=== PATIENT | male | born 1950 | race Caucasian/White ===

== ENCOUNTER 2017-06-10 19:48 | Inpatient (IN) ==
--- NOTE | 2017-06-10 20:27 | Emergency Department Note ---
Disposition Clinical Impression: Hyponatremia, Influenza Disposition: Admitted As Inpatient Condition: Good Time of Disposition: 00:08 General Adult HPI - General Chief complaint: ED Upper Respiratory Infection Stated complaint: flu/unable to pee Time Seen by Provider: 06/10/17 20:17 Source: patient Mode of arrival: ambulatory Limitations: no limitations Nursing Notes Reviewed: Yes Vital Signs Reviewed: Yes - History of Present Illness HPI Narrative: 66-year-old male history of CAD x1 stent 1999 presents to the emergency department for chest discomfort, congestion, difficulty urinating. The symptoms started 4 days ago. He was seen at the [place] and was diagnosed with influenza. Since then he has been taking Tamiflu and was prescribed antibiotic. His chest x-ray was reported normal without findings of pneumonia. Since then he has progressively feeling more weak and fatigued. He describes a chest discomfort in the midsternum which she describes as his chest wanting to throw up. He does feel nausea denies any vomiting. Denies any fever chills. He reports decreased PO intake. Over the past several months he has been having some hesitancy with urination. He states he is been seen by his primary care physician and was told to not worry about it. Today he had issue starting but was able to urinate a small amount prior to arrival. He believes he is a little dehydrated. Pain Scale: 3 - Related Data Home Medications Medication Instructions Recorded Confirmed Docusate Sodium [Dok] 100 mg PO DAILY 01/01/17 06/10/17 Insulin Glargine,Hum.rec.anlog 12 unit SQ HS 01/01/17 06/10/17 [Lantus Solostar] Levothyroxine [Synthroid] 100 mcg PO 0630 01/01/17 06/10/17 Oxycodone HCl/Acetaminophen 1 tab PO TID PRN 01/01/17 06/10/17 [Percocet 5-325 mg Tablet] Albuterol Sulfate [Albuterol 2 puff IH Q4H PRN 06/10/17 06/10/17 Inhaler] Aspirin Enteric Coated [Aspirin EC] 325 mg PO DAILY 06/10/17 06/10/17 Cetirizine HCl [Zyrtec] 10 mg PO DAILY 06/10/17 06/10/17 [place] Tar [Tarsum Professional] 1 appl TP AD 06/10/17 06/10/17 Doxycycline Monohydrate [Avidoxy] 100 mg PO BID 06/10/17 06/10/17 GuaiFENesin/Dextromethorphan 10 ml PO Q4H PRN 06/10/17 06/10/17 [Tussin Dm Syrup] Ibuprofen [Motrin] 600 mg PO Q8H 06/10/17 06/10/17 Lisinopril [Zestril] 5 mg PO DAILY 06/10/17 06/10/17 Metformin HCl [Metformin HCl ER] 1,000 mg PO BID 06/10/17 Methadone 40 mg PO QID 06/10/17 06/10/17 Omeprazole [PriLOSEC] 40 mg PO DAILY 06/10/17 Polyvinyl Alcohol [Artificial 1 drop BOTH EYES QID 06/10/17 06/10/17 Tears] Silver Sulfadiazine [Silvadene] 1 appl TP BID PRN 06/10/17 06/10/17 Allergies Allergy/AdvReac Type Severity Reaction Status Date / Time fentanyl Allergy Rash Verified 01/10/17 07:40 gabapentin Allergy See Verified 06/10/17 22:54 Comments Imipramine Allergy Rash Verified 06/10/17 19:56 morphine Allergy Hives Verified 01/10/17 07:40 Penicillins Allergy Rash Verified 01/10/17 07:40 tofanil Allergy Severe Muscle Pain Uncoded 01/01/17 09:07 All systems ED: reviewed and negative except as stated. Review of Systems: As Per HPI Constitutional: Reports: weakness. Denies: fever, chills ENT ED: Reports: congestion Cardiovascular: Reports: chest pain Respiratory: Reports: cough. Denies: dyspnea Gastrointestinal: Reports: nausea. Denies: abdominal pain, vomiting Genitourinary: Denies: urgency, dysuria Musculoskeletal: Denies: back pain, neck pain Integumentary: Denies: rash, abrasion Past Medical History - Past Medical History Attestation: Yes The following information was validated with the patient. Source: patient Medical history: Reports: arthritis, cancer, COPD, coronary artery disease, diabetes, hyperlipidemia, hypertension, myocardial infarction, peripheral artery disease, thyroid disease, other Surgical history: Reports: other Psychiatric history: Reports: bipolar, schizophrenia - Social History Smoking Status: Former smoker Smokeless Tobacco Status: No Alcohol use: Reports: none Drug use: Reports: none Physical Exam - General Limitations: no limitations General appearance: alert, in no apparent distress - Head Head exam: atraumatic, normocephalic, normal inspection - Eye Eye exam: Present: normal appearance, PERRL, EOMI - ENT ENT exam: normal exam, normal oropharynx, mucous membranes moist - Neck Neck exam: Present: normal inspection, full ROM, trachea midline - Chest Chest inspection: Present: normal inspection, symmetric chest wall rise - Respiratory Respiratory exam: Present: normal lung sounds bilaterally. Absent: respiratory distress, wheezes - Cardiovascular Cardiovascular exam: Present: regular rate, normal rhythm, normal heart sounds - Abdominal Exam Abdominal exam: Present: soft, Non-Tender. Absent: tenderness, distention, guarding, rebound, rigidity - Extremities Exam Extremities exam: Present: normal inspection, full ROM, normal capillary refill. Absent: tenderness, pedal edema - Neurological Exam Neurological exam: Present: alert, oriented X3 - Psychiatric Psychiatric exam: Present: normal affect, normal mood - Skin Skin exam: Present: warm, dry, intact, normal color Course Course Narrative: Chest pain workup initiated given his history of coronary arterial disease and worsening symptoms. Chest x-ray to evaluate for any new pneumonia. EKG performed did not show any acute ischemic changes. Patient taken aspirin earlier today. Labs pending. - Reevaluation(s) Reevaluation #1: Troponin lesson 0.03. He did have a critical lab of sodium 117. It appears he has chronic hyponatremia. He denies history of alcoholism. He reports history of squamous cell skin carcinoma that radical neck dissection which did also appeared to injure one of his nerves to his vocal cords. Chest x-ray unremarkable and did not reveal any abnormal masses to suggest malignancy. He denies any seizures. He remains awake alert and oriented person place and time. No confusion. He appears you have bulimic. Urinalysis performed given his complaint of difficulty and urinating. Is not consistent with infection. Will also add urine osmol and urine sodium to better evaluate his cause for hyponatremia. At this time he does not require hypertonic normal saline. Will place him on a maintenance of 100 mL per hour normal saline drip. He will require admission for his hyponatremia further monitoring. He does have a history of diabetes by his glucose is 169,which does not correct much higher than 118. Patient may require one additional a of treatment for his influenza. Impression is influenza hyponatremia. It is otherwise in stable condition. - Consultations Consultation #1: Spoke with on-call hospitalist marcela Dillard to admit for acute on chronic hyponatremia. Patient is alert and oriented, no encephalopathy. Euvolemic started on 100cc/hr NS.. Request patient be admitted to ICU for close monitoring Time: 00:08 Vital Signs Temperature 98.7 F 06/10/17 19:56 Pulse Rate 94 06/10/17 19:56 Respiratory Rate 16 06/10/17 19:56 Blood Pressure 171/91 06/10/17 19:56 O2 Sat by Pulse Oximetry 95 06/10/17 19:56 Temperature 98.7 F 06/10/17 19:56 Pulse Rate 106 06/11/17 00:19 Respiratory Rate 18 06/11/17 00:19 Blood Pressure 144/96 06/11/17 00:19 O2 Sat by Pulse Oximetry 97 06/11/17 00:19 Oxygen Delivery Oxygen Delivery Room Air Medical Decision Making - MDM Narrative Medical decision making narrative: Patient was discussed with my attending physician who agrees with ED management and final disposition. They independently evaluated the patient. Please refer to their attestation to this encounter for additional information. This note was generated by [employer] voice recognition software and as a result grammatical or spelling errors may occur using this program. - Medical Records Medical records reviewed: Yes I reviewed the patient's medical records. - Lab Data Lab results reviewed: Yes I reviewed the patient's lab results. Result diagrams: 06/10/17 20:49 06/10/17 20:49 Lab Results 06/10/17 06/10/17 06/10/17 Range/Units 20:45 20:49 20:49 WBC (4.3-11.1) K/mcL RBC (4.19-5.50) M/mcL Hgb (12.9-16.9) g/dL Hct (37.5-50.1) % MCV (83.0-100.0) fL MCH (28.0-33.3) pg MCHC (31.6-35.5) g/dL RDW (11.5-14.5) % Plt Count (140-400) K/mcL MPV (9.4-12.4) fL Immature Gran % (0-4) % Seg Neutrophils % % Lymphocytes % % Monocytes % % Eosinophils % % Basophils % % Neutrophils # (1.6-8.9) K/mcL Lymphocytes # (0.6-4.6) K/mcL Monocytes # (0.0-1.3) K/mcL Eosinophils # (0.0-0.6) K/mcL Basophils # (0.0-0.2) K/mcL Sodium (136-145) mEq/L Potassium (3.5-5.1) mEq/L Chloride (98-107) mEq/L Carbon Dioxide (23-29) mEq/L BUN (8-23) mg/dL Creatinine (0.70-1.30) mg/dL Est GFR ( Amer) (> 60) Est GFR (Non-Af Amer) (> 60) BUN/Creatinine Ratio (6-26) Glucose (70-105) mg/dL Calculated Osmolality (280-300) Calcium (8.6-10.3) mg/dL Total Bilirubin 0.5 (0.3-1.0) mg/dL Direct Bilirubin 0.2 (0.0-0.2) mg/dL Indirect Bilirubin 0.3 (0.0-1.2) mg/dL AST 20 (13-39) Units/L ALT 11 (7-52) Units/L Alkaline Phosphatase 60 (34-104) Units/L Troponin I (< 0.04) ng/mL Serum Total Protein 6.7 (6.4-8.9) g/dL Albumin 4.1 (3.5-5.7) g/dL Globulin 2.6 (2.4-3.5) g/dL Albumin/Globulin Ratio 1.6 (1.1-2.2) Lipase 3 L (11-82) Units/L Urine Color Yellow (Yellow) Urine Clarity Clear (Clear) Urine pH 6.0 (5.0-8.0) pH Units Ur Specific [place] 1.019 (1.010-1.025) Urine Protein Negative (Neg-Trace) mg/dL Urine Glucose (UA) 500 H (Normal) mg/dL Urine Ketones Negative (Negative) mg/dL Urine Blood Negative (Negative) Urine Nitrite Negative (Negative) Urine Bilirubin Negative (Negative) Urine Urobilinogen Normal (Normal) mg/dL Ur Leukocyte Esterase Negative (Negative) Ur Culture Indicated? NO (NO) 06/10/17 06/10/17 Range/Units 20:49 20:49 WBC 6.0 (4.3-11.1) K/mcL RBC 4.08 L (4.19-5.50) M/mcL Hgb 12.5 L (12.9-16.9) g/dL Hct 34.4 L (37.5-50.1) % MCV 84.3 (83.0-100.0) fL MCH 30.6 (28.0-33.3) pg MCHC 36.3 H (31.6-35.5) g/dL RDW 12.6 (11.5-14.5) % Plt Count 199 (140-400) K/mcL MPV 9.3 L (9.4-12.4) fL Immature Gran % 0.5 (0-4) % Seg Neutrophils % 75.2 % Lymphocytes % 11.6 % Monocytes % 9.9 % Eosinophils % 2.5 % Basophils % 0.3 % Neutrophils # 4.5 (1.6-8.9) K/mcL Lymphocytes # 0.7 (0.6-4.6) K/mcL Monocytes # 0.6 (0.0-1.3) K/mcL Eosinophils # 0.2 (0.0-0.6) K/mcL Basophils # 0.0 (0.0-0.2) K/mcL Sodium 117 L* (136-145) mEq/L Potassium 4.7 (3.5-5.1) mEq/L Chloride 86 L (98-107) mEq/L Carbon Dioxide 25 (23-29) mEq/L BUN 12 (8-23) mg/dL Creatinine 1.03 (0.70-1.30) mg/dL Est GFR ( Amer) > 60 (> 60) Est GFR (Non-Af Amer) > 60 (> 60) BUN/Creatinine Ratio 12 (6-26) Glucose 169 H (70-105) mg/dL Calculated Osmolality 248 L (280-300) Calcium 9.0 (8.6-10.3) mg/dL Total Bilirubin (0.3-1.0) mg/dL Direct Bilirubin (0.0-0.2) mg/dL Indirect Bilirubin (0.0-1.2) mg/dL AST (13-39) Units/L ALT (7-52) Units/L Alkaline Phosphatase (34-104) Units/L Troponin I < 0.03 (< 0.04) ng/mL Serum Total Protein (6.4-8.9) g/dL Albumin (3.5-5.7) g/dL Globulin (2.4-3.5) g/dL Albumin/Globulin Ratio (1.1-2.2) Lipase (11-82) Units/L Urine Color (Yellow) Urine Clarity (Clear) Urine pH (5.0-8.0) pH Units Ur Specific [place] (1.010-1.025) Urine Protein (Neg-Trace) mg/dL Urine Glucose (UA) (Normal) mg/dL Urine Ketones (Negative) mg/dL Urine Blood (Negative) Urine Nitrite (Negative) Urine Bilirubin (Negative) Urine Urobilinogen (Normal) mg/dL Ur Leukocyte Esterase (Negative) Ur Culture Indicated? (NO) - Radiology Data Radiology results reviewed: Yes I reviewed the patient's radiology results. Chest X-Ray 06/10/17 20:40 IMPRESSION: Stable portable study. D/ / Mitzi Mccarthy Cha, MD / Mitzi Mccarthy Cha, MD Interpreting Provider: Mitzi Mccarthy Cha, MD - EKG Data EKG #1 EKG attestation: Yes I reviewed and interpreted this EKG. EKG results narrative: EKG performed 2048 normal sinus rhythm 88 bpm, occasional PVCs seen, no ST elevation or depression, no T wave inversion, [place] interval 189 QRS 104 QT QTC 362 408. Compared to prior EKG performed 12/26/2016 shows sinus tachycardia 101 beats per minute with similar consistent findings. No acute ischemic changes.
[2017-06-10] MEDS ORDERED: GI Cocktail 40 ML EACH PO ONE (20:40)
[2017-06-10 20:58] LABS: Bilirubin,Urine Negative (Negative); Blood,Urine Negative (Negative); Clarity,Urine Clear (Clear); Color,Urine Yellow (Yellow); Glucose,Urine (UA) 500 mg/dL (Normal); Ketones,Urine Negative (Negative); Leukocyte Esterase,Urine Negative (Negative); Nitrite,Urine Negative (Negative); Protein,Urine Negative (Neg-Trace); Specific Gravity,Urine 1.019 (1.010-1.025); Urobilinogen,Urine Normal (Normal)
[2017-06-10 21:06] LABS: Basophils % 0.3 %; Eosinophils # 0.2 K/mcL (0.0-0.6); Eosinophils % 2.5 %; Hematocrit 34.4 % (37.5-50.1); Hemoglobin 12.5 g/dL (12.9-16.9); Immature Granulocytes % 0.5 % (0-4); Lymphocytes # 0.7 K/mcL (0.6-4.6); Lymphocytes % 11.6 %; Mean Corpuscular HGB Conc 36.3 g/dL (31.6-35.5); Mean Corpuscular Hemoglobin 30.6 pg (28.0-33.3); Mean Corpuscular Volume 84.3 fL (83.0-100.0); Mean Platelet Volume 9.3 fL (9.4-12.4); Monocytes # 0.6 K/mcL (0.0-1.3); Monocytes % 9.9 %; Neutrophils # 4.5 K/mcL (1.6-8.9); Platelet Count 199 K/mcL (140-400); Red Blood Count 4.08 M/mcL (4.19-5.50); Red Cell Distribution Width 12.6 % (11.5-14.5); Segmented Neutrophils % 75.2 %
[2017-06-10 21:21] LABS: Albumin 4.1 g/dL (3.5-5.7); Albumin/Globulin Ratio 1.6 (1.1-2.2); Bilirubin,Direct 0.2 mg/dL (0.0-0.2); Bilirubin,Indirect 0.3 mg/dL (0.0-1.2); Bilirubin,Total 0.5 mg/dL (0.3-1.0); Globulin 2.6 g/dL (2.4-3.5); Total Protein 6.7 g/dL (6.4-8.9)
[2017-06-10 21:35] LABS: BUN/Creatinine Ratio 12 (6-26); Blood Urea Nitrogen 12 mg/dL (8-23); Carbon Dioxide 25 mEq/L (23-29); Chloride 86 mEq/L (98-107); Potassium 4.7 mEq/L (3.5-5.1); Sodium 117 mEq/L (136-145)
[2017-06-10 21:36] LABS: Glucose 169 mg/dL (70-105); Osmolality,Calculated 248 (280-300); Troponin I < 0.03 ng/mL (< 0.04); eGFR For African Americans > 60 (> 60); eGFR For Non-African Americans > 60 (> 60)
[2017-06-10] MEDS ORDERED: Ondansetron 4 MG/2 ML VIAL IVP ONE (22:27)
[2017-06-10] MEDS ORDERED: 0.9 % Sodium Chloride 1,000 ML IVC SCH (22:30)
[2017-06-10] MEDS ORDERED: 0.9 % Sodium Chloride 1,000 ML ONE (22:31)
[2017-06-10] MEDS ORDERED: *HR* OxyCODONE/APAP 5/325 TABLET PO ONE (23:54)
--- NOTE | 2017-06-11 01:01 | Emergency Department Note ---
Disposition Clinical Impression: Hyponatremia, Influenza Disposition: Admitted As Inpatient Condition: Good General Adult HPI - General Chief complaint: ED Upper Respiratory Infection Stated complaint: flu/unable to pee Time Seen by Provider: 06/10/17 20:17 Source: patient Mode of arrival: ambulatory Limitations: no limitations Nursing Notes Reviewed: Yes Vital Signs Reviewed: Yes - History of Present Illness Pain Scale: 3 - Related Data Home Medications Medication Instructions Recorded Confirmed Docusate Sodium [Dok] 100 mg PO DAILY 01/01/17 06/10/17 Insulin Glargine,Hum.rec.anlog 12 unit SQ HS 01/01/17 06/10/17 [Lantus Solostar] Levothyroxine [Synthroid] 100 mcg PO 0630 01/01/17 06/10/17 Oxycodone HCl/Acetaminophen 1 tab PO TID PRN 01/01/17 06/10/17 [Percocet 5-325 mg Tablet] Albuterol Sulfate [Albuterol 2 puff IH Q4H PRN 06/10/17 06/10/17 Inhaler] Aspirin Enteric Coated [Aspirin EC] 325 mg PO DAILY 06/10/17 06/10/17 Cetirizine HCl [Zyrtec] 10 mg PO DAILY 06/10/17 06/10/17 [place] Tar [Tarsum Professional] 1 appl TP AD 06/10/17 06/10/17 Doxycycline Monohydrate [Avidoxy] 100 mg PO BID 06/10/17 06/10/17 GuaiFENesin/Dextromethorphan 10 ml PO Q4H PRN 06/10/17 06/10/17 [Tussin Dm Syrup] Ibuprofen [Motrin] 600 mg PO Q8H 06/10/17 06/10/17 Lisinopril [Zestril] 5 mg PO DAILY 06/10/17 06/10/17 Metformin HCl [Metformin HCl ER] 1,000 mg PO BID 06/10/17 Methadone 40 mg PO QID 06/10/17 06/10/17 Omeprazole [PriLOSEC] 40 mg PO DAILY 06/10/17 Polyvinyl Alcohol [Artificial 1 drop BOTH EYES QID 06/10/17 06/10/17 Tears] Silver Sulfadiazine [Silvadene] 1 appl TP BID PRN 06/10/17 06/10/17 Allergies Allergy/AdvReac Type Severity Reaction Status Date / Time fentanyl Allergy Rash Verified 01/10/17 07:40 gabapentin Allergy See Verified 06/10/17 22:54 Comments Imipramine Allergy Rash Verified 06/10/17 19:56 morphine Allergy Hives Verified 01/10/17 07:40 Penicillins Allergy Rash Verified 01/10/17 07:40 tofanil Allergy Severe Muscle Pain Uncoded 01/01/17 09:07 Constitutional: Reports: weakness. Denies: fever, chills ENT ED: Reports: congestion Cardiovascular: Reports: chest pain Respiratory: Reports: cough. Denies: dyspnea Gastrointestinal: Reports: nausea. Denies: abdominal pain, vomiting Genitourinary: Denies: urgency, dysuria Musculoskeletal: Denies: back pain, neck pain Integumentary: Denies: rash, abrasion Past Medical History - Past Medical History Medical history: Reports: arthritis, cancer, COPD, coronary artery disease, diabetes, hyperlipidemia, hypertension, myocardial infarction, peripheral artery disease, thyroid disease, other Surgical history: Reports: other Psychiatric history: Reports: bipolar, schizophrenia - Social History Smoking Status: Former smoker Smokeless Tobacco Status: No Alcohol use: Reports: none Drug use: Reports: none Physical Exam - General Limitations: no limitations General appearance: alert, in no apparent distress Course Vital Signs Temperature 98.7 F 06/10/17 19:56 Pulse Rate 94 06/10/17 19:56 Respiratory Rate 16 06/10/17 19:56 Blood Pressure 171/91 06/10/17 19:56 O2 Sat by Pulse Oximetry 95 06/10/17 19:56 Temperature 98.7 F 06/10/17 19:56 Pulse Rate 106 06/11/17 00:19 Respiratory Rate 18 06/11/17 00:19 Blood Pressure 144/96 06/11/17 00:19 O2 Sat by Pulse Oximetry 97 06/11/17 00:19 Oxygen Delivery Oxygen Delivery Room Air Medical Decision Making - Lab Data Result diagrams: 06/10/17 20:49 06/10/17 20:49 Lab Results 06/10/17 06/10/17 06/10/17 Range/Units 20:45 20:49 20:49 WBC (4.3-11.1) K/mcL RBC (4.19-5.50) M/mcL Hgb (12.9-16.9) g/dL Hct (37.5-50.1) % MCV (83.0-100.0) fL MCH (28.0-33.3) pg MCHC (31.6-35.5) g/dL RDW (11.5-14.5) % Plt Count (140-400) K/mcL MPV (9.4-12.4) fL Immature Gran % (0-4) % Seg Neutrophils % % Lymphocytes % % Monocytes % % Eosinophils % % Basophils % % Neutrophils # (1.6-8.9) K/mcL Lymphocytes # (0.6-4.6) K/mcL Monocytes # (0.0-1.3) K/mcL Eosinophils # (0.0-0.6) K/mcL Basophils # (0.0-0.2) K/mcL Sodium (136-145) mEq/L Potassium (3.5-5.1) mEq/L Chloride (98-107) mEq/L Carbon Dioxide (23-29) mEq/L BUN (8-23) mg/dL Creatinine (0.70-1.30) mg/dL Est GFR ( Amer) (> 60) Est GFR (Non-Af Amer) (> 60) BUN/Creatinine Ratio (6-26) Glucose (70-105) mg/dL Calculated Osmolality (280-300) Calcium (8.6-10.3) mg/dL Total Bilirubin 0.5 (0.3-1.0) mg/dL Direct Bilirubin 0.2 (0.0-0.2) mg/dL Indirect Bilirubin 0.3 (0.0-1.2) mg/dL AST 20 (13-39) Units/L ALT 11 (7-52) Units/L Alkaline Phosphatase 60 (34-104) Units/L Troponin I (< 0.04) ng/mL Serum Total Protein 6.7 (6.4-8.9) g/dL Albumin 4.1 (3.5-5.7) g/dL Globulin 2.6 (2.4-3.5) g/dL Albumin/Globulin Ratio 1.6 (1.1-2.2) Lipase 3 L (11-82) Units/L Urine Color Yellow (Yellow) Urine Clarity Clear (Clear) Urine pH 6.0 (5.0-8.0) pH Units Ur Specific [place] 1.019 (1.010-1.025) Urine Protein Negative (Neg-Trace) mg/dL Urine Glucose (UA) 500 H (Normal) mg/dL Urine Ketones Negative (Negative) mg/dL Urine Blood Negative (Negative) Urine Nitrite Negative (Negative) Urine Bilirubin Negative (Negative) Urine Urobilinogen Normal (Normal) mg/dL Ur Leukocyte Esterase Negative (Negative) Ur Culture Indicated? NO (NO) 06/10/17 06/10/17 Range/Units 20:49 20:49 WBC 6.0 (4.3-11.1) K/mcL RBC 4.08 L (4.19-5.50) M/mcL Hgb 12.5 L (12.9-16.9) g/dL Hct 34.4 L (37.5-50.1) % MCV 84.3 (83.0-100.0) fL MCH 30.6 (28.0-33.3) pg MCHC 36.3 H (31.6-35.5) g/dL RDW 12.6 (11.5-14.5) % Plt Count 199 (140-400) K/mcL MPV 9.3 L (9.4-12.4) fL Immature Gran % 0.5 (0-4) % Seg Neutrophils % 75.2 % Lymphocytes % 11.6 % Monocytes % 9.9 % Eosinophils % 2.5 % Basophils % 0.3 % Neutrophils # 4.5 (1.6-8.9) K/mcL Lymphocytes # 0.7 (0.6-4.6) K/mcL Monocytes # 0.6 (0.0-1.3) K/mcL Eosinophils # 0.2 (0.0-0.6) K/mcL Basophils # 0.0 (0.0-0.2) K/mcL Sodium 117 L* (136-145) mEq/L Potassium 4.7 (3.5-5.1) mEq/L Chloride 86 L (98-107) mEq/L Carbon Dioxide 25 (23-29) mEq/L BUN 12 (8-23) mg/dL Creatinine 1.03 (0.70-1.30) mg/dL Est GFR ( Amer) > 60 (> 60) Est GFR (Non-Af Amer) > 60 (> 60) BUN/Creatinine Ratio 12 (6-26) Glucose 169 H (70-105) mg/dL Calculated Osmolality 248 L (280-300) Calcium 9.0 (8.6-10.3) mg/dL Total Bilirubin (0.3-1.0) mg/dL Direct Bilirubin (0.0-0.2) mg/dL Indirect Bilirubin (0.0-1.2) mg/dL AST (13-39) Units/L ALT (7-52) Units/L Alkaline Phosphatase (34-104) Units/L Troponin I < 0.03 (< 0.04) ng/mL Serum Total Protein (6.4-8.9) g/dL Albumin (3.5-5.7) g/dL Globulin (2.4-3.5) g/dL Albumin/Globulin Ratio (1.1-2.2) Lipase (11-82) Units/L Urine Color (Yellow) Urine Clarity (Clear) Urine pH (5.0-8.0) pH Units Ur Specific [place] (1.010-1.025) Urine Protein (Neg-Trace) mg/dL Urine Glucose (UA) (Normal) mg/dL Urine Ketones (Negative) mg/dL Urine Blood (Negative) Urine Nitrite (Negative) Urine Bilirubin (Negative) Urine Urobilinogen (Normal) mg/dL Ur Leukocyte Esterase (Negative) Ur Culture Indicated? (NO) Attestation Statement - Attestation Attestation: I, Renan French MD, personally evaluated this patient and discussed their management with the resident physician. I reviewed the resident's note and agree with the documented findings, medical decision making, and plan of care. 66-year-old male who was diagnosed with influenza 5 days ago and treated with Tamiflu as well as antibiotics. He took his last Tamiflu today and states that he is not getting any better. He complains of just generalized weakness. Some mild shortness of breath. No significant cough. There has been some chest tightness and discomfort. On examination patient is a well-developed well-nourished male in no acute distress. He is alert and oriented 3. There is no cyanosis or diaphoresis. Breath sounds are decreased but equal bilaterally. Heart regular rate and rhythm. Abdomen soft and nontender with normal bowel sounds. Labs reviewed. Hyponatremia with sodium of 117. No acute abnormality on chest x-ray. EKG shows a normal sinus rhythm with ventricular rate of 88. Frequent PVCs. No acute ST segment elevations or depressions. The hospitalist, Dr. Mead, was consulted and accepted admission of the patient.
[2017-06-11] MEDS ORDERED: Acetaminophen 325 MG TABLET PO PRN (02:15)
[2017-06-11] MEDS ORDERED: Naloxone 0.4 MG/ML INJ IVP PRN (02:15)
[2017-06-11] MEDS ORDERED: *HR* Dextrose 50 % in Water (Syg) 50 ML SYRINGE IVP PRN (02:15)
[2017-06-11] MEDS ORDERED: D5% in Water 1,000 ML IVC PRN (02:15)
[2017-06-11] MEDS ORDERED: Dextrose Gel 15 GM/37.5 ML TUBE PO PRN ×2 (02:15)
[2017-06-11 02:18] LABS: BUN/Creatinine Ratio 12 (6-26); Blood Urea Nitrogen 12 mg/dL (8-23); Calcium 8.6 mg/dL (8.6-10.3); Carbon Dioxide 23 mEq/L (23-29); Chloride 89 mEq/L (98-107); Glucose 135 mg/dL (70-105); Osmolality,Calculated 250 (280-300); Potassium 4.4 mEq/L (3.5-5.1); Sodium 119 mEq/L (136-145); eGFR For African Americans > 60 (> 60); eGFR For Non-African Americans > 60 (> 60)
[2017-06-11] MEDS ORDERED: *HR* OxyCODONE/APAP 5/325 TABLET PO PRN (02:22)
[2017-06-11] MEDS ORDERED: 0.9 % Sodium Chloride 1,000 ML IVC SCH (02:24)
--- NOTE | 2017-06-11 03:31 | Internal Med History&Physical ---
Date of Encounter: 06/11/17 Time of Encounter: 01:50 Internal Medicine - H&P: HPI Chief complaint: fatigue, weakness, headache, FLU, low sodium Admitted From: Emergency Dept Plans for Post Hospital Care: Home History of present illness: Mr. Blanco is a 66 year old male who presents to the ER tonight with complaints of fatigue, weakness, headaches, difficulty urinating, and reported low sodium. Workup in ER revealed patient to have a critical hyponatremia with a sodium of 117. He was diagnosed with influenza several days ago and is completing his last dose of Tamiflu tonight. He was also on antibiotics for possible secondary pneumonia. However, it appears he has not developed pneumonia thus far. Because of his hyponatremia and generalized complaints, he was admitted to hospital service for further workup and care. Upon my assessment of the patient in the ICU, he is alert, oriented 3, and in no acute distress. However, he confirms having had headaches, fatigue, weakness , malaise, and appetite loss. He has also had some significant nausea. He still has some residual body aches and myalgias from his influenza as well. 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 He has had no recurrence of his cancer since initial diagnosis. He has had some bouts of hyponatremia in recent months, but he has not had sodium levels this low before. He does not use any diuretics. He does not drink any alcohol. He denies any liver disease. He does not appear fluid overloaded presently. Given his cancer history and critical hyponatremia, I am concerned about SIADH. However, on further history, he states he has had difficulty urinating over the last several months and he has significant bladder retention, difficulty finishing his urination, difficulty initiating urination, and also has a history of nocturia. He has history of prostate nodule but he denies any prostate hypertrophy or obstruction. Given the above history, I asked his nurse to place a Zimmerman catheter and to clamp his Zimmerman if he has greater than 500 mL diuresis upon placement of the catheter. Past Med Surg Social Fam HX - Past Medical History Attestation: Yes The following information was validated with the patient. Source: patient, old records reviewed Medical history: arthritis, cancer, COPD, coronary artery disease, diabetes, hyperlipidemia, hypertension, myocardial infarction, peripheral artery disease, thyroid disease Psychiatric history: bipolar, schizophrenia - Past Surgical History Surgical History: other (ENt surgery) - Social History Smoking Status: Former smoker Smokeless Tobacco Status: No Alcohol use: none Drug use: none Current living situation: Home, With Family Activity Level: Independent ambulation Recent Out of Country Travel Within the Last 8 Weeks: No - Family History Mother Hx Family Cardiac Disorders: No Hx Family Cancer: No Father Hx Family Cancer: No Internal Medicine - H&P: Meds Docusate Sodium [Dok] 100 mg PO DAILY 01/01/17 [History] Insulin Glargine,Hum.rec.anlog [Lantus Solostar] 12 unit SQ HS 01/01/17 [History ] Levothyroxine [Synthroid] 100 mcg PO 0630 01/01/17 [History] Oxycodone HCl/Acetaminophen [Percocet 5-325 mg Tablet] 1 tab PO TID PRN [History] Albuterol Sulfate [Albuterol Inhaler] 2 puff IH Q4H PRN 06/10/17 [History] Aspirin Enteric Coated [Aspirin EC] 325 mg PO DAILY 06/10/17 [History] Cetirizine HCl [Zyrtec] 10 mg PO DAILY 06/10/17 [History] Bandera Tar [Tarsum Professional] 1 appl TP AD 06/10/17 [History] Doxycycline Monohydrate [Avidoxy] 100 mg PO BID 06/10/17 [History] GuaiFENesin/Dextromethorphan [Tussin Dm Syrup] 10 ml PO Q4H PRN 06/10/17 [ History] Ibuprofen [Motrin] 600 mg PO Q8H 06/10/17 [History] Lisinopril [Zestril] 5 mg PO DAILY 06/10/17 [History] Metformin HCl [Metformin HCl ER] 1,000 mg PO BID 06/10/17 [History] Methadone 40 mg PO QID 06/10/17 [History] Omeprazole [PriLOSEC] 40 mg PO DAILY 06/10/17 [History] Polyvinyl Alcohol [Artificial Tears] 1 drop BOTH EYES QID 06/10/17 [History] Silver Sulfadiazine [Silvadene] 1 appl TP BID PRN 06/10/17 [History] 3 Allergy/AdvReac Type Severity Reaction Status Date / Time fentanyl Allergy Rash Verified 01/10/17 07:40 gabapentin Allergy See Verified 06/10/17 22:54 Comments Imipramine Allergy Rash Verified 06/10/17 19:56 morphine Allergy Hives Verified 01/10/17 07:40 Penicillins Allergy Rash Verified 01/10/17 07:40 tofanil Allergy Severe Muscle Pain Uncoded 01/01/17 09:07 - Constitutional Constitutional: anorexia, fatigue, malaise, weakness, no chills, no fever(s), no night sweats - EENT Eyes: no blurry vision, no change in vision, no photophobia Ears: no tinnitus Nose, mouth and throat: dry mouth, no dysphagia, no nasal congestion, no sinus pain, no sinus pressure, no sore throat - Cardiovascular Cardiovascular ROS IM: no chest pain, no dyspnea, no dyspnea on exertion, no edema, no lightheadedness, no orthopnea, no syncope - Respiratory Respiratory: cough (dry), no dyspnea, no hemoptysis, no dyspnea on exertion, no wheezing, no pain on inspiration, no chest congestion, no excessive phlegm production, no change in phlegm color, no pain with cough - Gastrointestinal Gastrointestinal: bloating, nausea, no abdominal pain, no coffee ground emesis, no constipation, no diarrhea, no heartburn, no hematemesis, no hematochezia, no melena, no vomiting - Genitourinary Genitourinary ROS male: difficulty urinating, dysuria, nocturia, urinary frequency, urinary urgency, no flank pain, no hematuria - Musculoskeletal Musculoskeletal ROS IM: muscle cramps, myalgias, no back pain - Integumentary Integumentary IM: no rash, no jaundice - Neurological Neurological ROS: headache(s), no confusion, no convulsions, no disequilibrium, no dizziness, no focal weakness, no frequent falls, no tingling - Psychiatric Psychiatric: no anxiety, no depression - Endocrine Endocrine IM: no cold intolerance, no heat intolerance, no polydipsia, no polyuria - Hematologic/Lymphatic Hematologic/Lymphatic: no easy bruising, no lymphadenopathy - Allergic/Immunologic Allergic/Immunologic: no wheezing, no GI upset with certain foods - Constitutional Vitals: Temp Pulse Resp BP Pulse Ox 98 F 89 12 165/97 97 06/11/17 01:06 06/11/17 02:15 06/11/17 02:15 06/11/17 02:15 06/11/17 02:15 General appearance: Present: cooperative, A&O X 3, pleasant, no acute distress, answers questions appropriately - Head Head exam: Present: atraumatic, normal inspection - Eye Eye exam: Present: EOMI, normal appearance, PERRL. Absent: scleral icterus Pupils: Present: normal accommodation - ENT ENT exam: Present: mucous membranes dry, normal exam, normal external ear exam, normal oropharynx - Neck Neck exam general surgery: Present: full ROM, supple. Absent: lymphadenopathy, tenderness, nuchal rigidity, thyromegaly - Respiratory Respiratory exam: Present: CTAB. Absent: chest wall tenderness, rales, respiratory distress, rhonchi, wheezes - Cardiovascular Cardiovascular exam: Present: RRR, +S1, +S2. Absent: diastolic murmur, systolic murmur - GI/Abdominal GI/Abdominal exam: Present: distended, normal bowel sounds, no peritoneal signs. Absent: guarding, hepatomegaly, mass, rebound, splenomegaly, tenderness - Extremities Exam Extremities exam: Present: full ROM, normal capillary refill, warm, radial pulses palpable and symmetrical. Absent: calf tenderness, joint swelling, pedal edema, tenderness - Back Exam Back exam: Present: normal inspection. Absent: CVA tenderness (L), CVA tenderness (R) - Neurological Exam Neurological exam: Present: alert, CN II-XII intact, oriented X3, no focal deficits, strengths equal and symetr throughout - Psychiatric Psychiatric exam: Present: normal affect, normal mood - Skin Skin exam: Present: dry, warm. Absent: rash Internal Med - H&P Results - Labs CBC & Chem 7: 06/10/17 20:49 06/11/17 01:08 - Diagnostic Studies Chest x-ray Status: image reviewed by me (negative) - Assessment and plan (1) Hyponatremia Current Visit: Yes Status: Acute Assessment and plan: 1. Will order Q6H BMP and monitor electrolytes closely. 2. Continue laura IVF hydration as he appears minimally dry. 3. Will order CT head given headaches and hyponatremia. 4. Will consult nephrology if necessary. 5. Possibly due to Influenza and/or pneumonia, although clinically, I do not suspect pneumonia. 6. Repeat Sodium level is 119 upon arrival to ICU. (2) Tongue cancer Current Visit: Yes Status: Chronic Assessment and plan: 1. Patient follows with Oncology as outpatient. 2. May need to consult oncology inpatient if clinical and diagnostic findigns suggest SIADH. (3) Type 2 diabetes mellitus Current Visit: Yes Status: Chronic Assessment and plan: 1. Hold oral meds. 2. Will place on SSI and monitor glucose closely. 3. Adjust SSI dosing as needed. Qualifiers: Diabetes mellitus correction insulin use: with correction use Diabetes mellitus complication status: with neurologic complications Diabetes mellitus complication detail: with unspecified neuropathy Qualified Code(s): E11.40 - Type 2 diabetes mellitus with diabetic neuropathy, unspecified; Z79.4 - adjunct faculty for medical terminology (current) use of insulin; Z79.4 - adjunct faculty for medical terminology (current) use of insulin; Z79.4 - adjunct faculty for medical terminology (current) use of insulin; Z79.4 - adjunct faculty for medical terminology (current) use of insulin (4) Influenza Current Visit: Yes Status: Acute Assessment and plan: 1. Patient completed Tamiflu tonight prior to admission. 2. Will place in respiratory/droplet precautions. (5) Urinary (tract) obstruction Current Visit: Yes Status: Suspected Assessment and plan: 1. I asked RN to place Zimmerman and clamp if urine output > 500 ml upon Zimmerman placement. 2. Will order PSA. 3. May need Renal ultrasound. (6) DVT prophylaxis Current Visit: Yes Status: Acute Assessment and plan: 1. Heparin SQ.
[2017-06-11] MEDS: *HR* Heparin 5,000 UNIT/ML VIAL SQ SCH ×2 (05:04→17:30)
[2017-06-11] MEDS: Ondansetron 4 MG/2 ML VIAL IVP PRN ×2 (05:09→22:02)
[2017-06-11 05:42] LABS: Basophils % 0.6 %; Eosinophils # 0.2 K/mcL (0.0-0.6); Eosinophils % 3.4 %; Hematocrit 33.2 % (37.5-50.1); Hemoglobin 11.9 g/dL (12.9-16.9); Immature Granulocytes % 0.4 % (0-4); Lymphocytes # 0.9 K/mcL (0.6-4.6); Lymphocytes % 17.8 %; Mean Corpuscular HGB Conc 35.8 g/dL (31.6-35.5); Mean Corpuscular Hemoglobin 30.1 pg (28.0-33.3); Mean Corpuscular Volume 84.1 fL (83.0-100.0); Mean Platelet Volume 9.3 fL (9.4-12.4); Monocytes # 0.5 K/mcL (0.0-1.3); Monocytes % 9.9 %; Neutrophils # 3.3 K/mcL (1.6-8.9); Platelet Count 163 K/mcL (140-400); Red Blood Count 3.95 M/mcL (4.19-5.50); Red Cell Distribution Width 12.5 % (11.5-14.5); Segmented Neutrophils % 67.9 %
[2017-06-11 05:51] LABS: INR 1.2; Prothrombin Time 13.4 Seconds (9.4-12.1)
[2017-06-11 05:53] LABS: Alanine Aminotransferase 9 Units/L (7-52); Albumin 3.7 g/dL (3.5-5.7); Albumin/Globulin Ratio 1.6 (1.1-2.2); Alkaline Phosphatase 53 Units/L (34-104); Aspartate Amino Transferase 18 Units/L (13-39); BUN/Creatinine Ratio 13 (6-26); Bilirubin,Total 0.4 mg/dL (0.3-1.0); Blood Urea Nitrogen 12 mg/dL (8-23); Calcium 8.5 mg/dL (8.6-10.3); Carbon Dioxide 24 mEq/L (23-29); Chloride 91 mEq/L (98-107); Globulin 2.3 g/dL (2.4-3.5); Glucose 110 mg/dL (70-105); Magnesium 1.5 mg/dL (1.6-2.6); Osmolality,Calculated 250 (280-300); Potassium 4.4 mEq/L (3.5-5.1); Sodium 120 mEq/L (136-145); eGFR For African Americans > 60 (> 60); eGFR For Non-African Americans > 60 (> 60)
[2017-06-11 05:54] LABS: Activated Partial Thrombo Time 33.8 Seconds (26.0-36.0)
[2017-06-11] MEDS ORDERED: Isovue-370 500 ML INFUS..BTL IV ONE (07:53)
[2017-06-11] MEDS: Insulin LISPRO 300 UNITS/3 ML VIAL SQ SCH ×3 (07:53→17:06)
[2017-06-11 08:17] LABS: Estimated Average Glucose 203 mg/dl; Hemoglobin A1C 8.7 %
[2017-06-11] MEDS: Aspirin Enteric Coated 325 MG Tablet PO SCH (08:42)
[2017-06-11] MEDS: *HR* Methadone 10 MG TABLET PO SCH ×4 (08:43→21:15)
[2017-06-11] MEDS: Loratadine 10 MG TABLET PO SCH (08:43)
[2017-06-11] MEDS: Doxycycline 100 MG CAPSULE PO SCH ×2 (08:43→21:15)
[2017-06-11] MEDS: Artificial Tears SOLN 15 ML BOTTLE BOTH EYES SCH ×4 (08:45→21:16)
[2017-06-11] MEDS: 0.9 % Sodium Chloride 1,000 ML IVC SCH ×2 (09:33→22:03)
[2017-06-11 11:54] LABS: BUN/Creatinine Ratio 12 (6-26); Blood Urea Nitrogen 11 mg/dL (8-23); Calcium 8.3 mg/dL (8.6-10.3); Carbon Dioxide 24 mEq/L (23-29); Chloride 92 mEq/L (98-107); Glucose 98 mg/dL (70-105); Osmolality,Calculated 255 (280-300); Potassium 4.2 mEq/L (3.5-5.1); Sodium 123 mEq/L (136-145); eGFR For African Americans > 60 (> 60); eGFR For Non-African Americans > 60 (> 60)
[2017-06-11] MEDS ORDERED: *HR* Methadone 10 MG TABLET PO ONE ×2 (13:31→17:13)
--- NOTE | 2017-06-11 19:02 | Event Note ---
Date of Encounter: 06/11/17 Time of Encounter: 08:50 66-year-old male with history of base of tongue cancer status post chemoradiation, hypertension, diabetes, bipolar disorder and schizophrenia, admitted with generalized weakness, noted to have hyponatremia. Seen and examined at bedside. Reports nonspecific symptoms of myalgia, generalized weakness, left jaw pain, low back pain. Chest-S1, S2 heard. Lungs are clear to auscultation bilaterally Labs reviewed-sodium was 117 at presentation, improved to 120. Urine sodium and osmolality noted to be low. Chronic microvascular ischemic changes, no acute stroke and no evidence of intracranial metastatic disease. Hypovolemic hyponatremia-responding to IV hydration. Likely from dehydration. Continue IV normal saline, monitor urine output and serum creatinine closely. BMP every 6-8 hourly. Continue telemetry monitoring. Check TSH.
[2017-06-11 21:05] LABS: BUN/Creatinine Ratio 13 (6-26); Blood Urea Nitrogen 13 mg/dL (8-23); Calcium 8.4 mg/dL (8.6-10.3); Carbon Dioxide 27 mEq/L (23-29); Chloride 97 mEq/L (98-107); Glucose 141 mg/dL (70-105); Osmolality,Calculated 266 (280-300); Potassium 4.4 mEq/L (3.5-5.1); Sodium 127 mEq/L (136-145); eGFR For African Americans > 60 (> 60); eGFR For Non-African Americans > 60 (> 60)
[2017-06-12 05:10] LABS: Basophils % 0.5 %; Eosinophils # 0.3 K/mcL (0.0-0.6); Eosinophils % 7.8 %; Hematocrit 29.7 % (37.5-50.1); Hemoglobin 10.5 g/dL (12.9-16.9); Immature Granulocytes % 0.5 % (0-4); Lymphocytes # 0.9 K/mcL (0.6-4.6); Lymphocytes % 20.7 %; Mean Corpuscular HGB Conc 35.4 g/dL (31.6-35.5); Mean Corpuscular Hemoglobin 30.5 pg (28.0-33.3); Mean Corpuscular Volume 86.3 fL (83.0-100.0); Mean Platelet Volume 9.2 fL (9.4-12.4); Monocytes # 0.5 K/mcL (0.0-1.3); Monocytes % 12.1 %; Neutrophils # 2.5 K/mcL (1.6-8.9); Platelet Count 147 K/mcL (140-400); Red Blood Count 3.44 M/mcL (4.19-5.50); Segmented Neutrophils % 58.4 %
[2017-06-12 05:36] LABS: BUN/Creatinine Ratio 13 (6-26); Blood Urea Nitrogen 12 mg/dL (8-23); Calcium 8.1 mg/dL (8.6-10.3); Carbon Dioxide 25 mEq/L (23-29); Chloride 99 mEq/L (98-107); Glucose 129 mg/dL (70-105); Magnesium 1.8 mg/dL (1.6-2.6); Osmolality,Calculated 265 (280-300); Potassium 4.3 mEq/L (3.5-5.1); Sodium 127 mEq/L (136-145); eGFR For African Americans > 60 (> 60); eGFR For Non-African Americans > 60 (> 60)
[2017-06-12 05:49] LABS: Thyroid Stimulating Hormone 3.075 mcIU/mL (0.340-5.600)
[2017-06-12] MEDS: *HR* Heparin 5,000 UNIT/ML VIAL SQ SCH ×2 (06:09→16:21)
[2017-06-12] MEDS: Insulin LISPRO 300 UNITS/3 ML VIAL SQ SCH ×3 (08:38→16:20)
[2017-06-12] MEDS: Artificial Tears SOLN 15 ML BOTTLE BOTH EYES SCH ×2 (08:39→13:31)
[2017-06-12] MEDS: Doxycycline 100 MG CAPSULE PO SCH ×2 (08:40→22:17)
[2017-06-12] MEDS: Aspirin Enteric Coated 325 MG Tablet PO SCH (08:41)
[2017-06-12] MEDS: *HR* Methadone 10 MG TABLET PO SCH ×4 (08:41→22:47)
[2017-06-12] MEDS: Loratadine 10 MG TABLET PO SCH (08:41)
[2017-06-12] MEDS: 0.9 % Sodium Chloride 1,000 ML IVC SCH (11:15)
[2017-06-12] MEDS ORDERED: Artificial Tears SOLN 15 ML BOTTLE BOTH EYES PRN (13:28)
--- NOTE | 2017-06-12 16:07 | Internal Med Progress Note ---
Date of Encounter: 06/12/17 Time of Encounter: 13:00 - Assessment and plan (1) Hyponatremia Current Visit: Yes Status: Acute Assessment and plan: -Sodium levels have improved gradually since admission from 117 on 06/10/17 to 127 on 06/11/17 and again 127 this morning. -Continue IV normal saline and monitoring sodium levels. (2) Urinary retention Current Visit: Yes Status: Acute Assessment and plan: -Patient with good urine output on Zimmerman catheter. -Will discontinue this afternoon for voiding trial (3) Influenza Current Visit: Yes Status: Resolved Assessment and plan: Patient completed Tamiflu tonight prior to admission. (4) Tongue cancer Current Visit: Yes Status: Chronic Assessment and plan: Patient follows with Oncology as outpatient. (5) Type 2 diabetes mellitus Current Visit: Yes Status: Chronic Assessment and plan: Continue to hold oral meds and coverage with sliding-scale insulin. Qualifiers: Diabetes mellitus long term care pharmacist insulin use: with intermediate use Diabetes mellitus complication status: with neurologic complications Diabetes mellitus complication detail: with unspecified neuropathy Qualified Code(s): E11.40 - Type 2 diabetes mellitus with diabetic neuropathy, unspecified; Z79.4 - retirement (current) use of insulin; Z79.4 - retirement (current) use of insulin; Z79.4 - long term care pharmacist (current) use of insulin; Z79.4 - retirement (current) use of insulin (6) DVT prophylaxis Current Visit: Yes Status: Acute Assessment and plan: Subcutaneous heparin - Time Spent With Patient Total time spent is greater than 50% in coordination of care (as documented) at patient's floor/unit and/or counseling patient: - Subjective Interval history: Patient reports in decreased lower abdomen/pelvic discomfort and has good urinary output with Zimmerman catheter. Hyponatremia gradually improving as well. - Constitutional Vitals: Temp Pulse Resp BP Pulse Ox 97.8 F 72 16 115/74 96 06/12/17 08:00 06/12/17 14:56 06/12/17 14:56 06/12/17 14:56 06/12/17 14:56 General appearance: Present: cooperative, A&O X 3, pleasant, no acute distress, answers questions appropriately - Respiratory Respiratory exam: Present: CTAB. Absent: accessory muscle use, rales, rhonchi, wheezes - Cardiovascular Cardiovascular exam: Present: RRR, +S1, +S2. Absent: diastolic murmur, gallop, rubs, systolic murmur - GI/Abdominal GI/Abdominal exam: Present: soft, tenderness (Mild abdominal tenderness to palpation in lower abdomen region). Absent: distended Internal Medicine: Result - Labs CBC & Chem 7: 06/12/17 04:52 06/12/17 04:52 Labs: Short CBC 06/12/17 Range/Units 04:52 WBC 4.2 L (4.3-11.1) K/mcL Hgb 10.5 L (12.9-16.9) g/dL Hct 29.7 L (37.5-50.1) % Plt Count 147 (140-400) K/mcL Neutrophils # 2.5 (1.6-8.9) K/mcL BMP 06/11/17 06/12/17 20:33 04:52 Sodium 127 L 127 L Potassium 4.4 4.3 Chloride 97 L 99 Carbon Dioxide 27 25 BUN 13 12 Creatinine 0.99 0.94 Glucose 141 H 129 H Calcium 8.4 L 8.1 L - ABG Interpretation ABG results: PT/INR, D-dimer PT 13.4 Seconds (9.4-12.1) H 06/11/17 05:20 Consult Discharge Plan - Plan [facility]errals: [facility] [Primary Care Provider] -
--- NOTE | 2017-06-12 17:06 | Electrocardiograph Report ---
[place] [id number] Test Date: 2017-06-10 Pat Name: Carlos Blanco Department: 102 Room: [facility] Gender: M [employer] Production Supervisor: Meg : 1950 Requested By: Kash Carr Order Number: [id number] Reading MD: Alan Waters Measurements Intervals [place] Rate: 88 P: 69 NH: 189 QRS: 38 QRSD: 104 T: 58 QT: 362 QTc: 408 Interpretive Statements SINUS RHYTHM WITH FREQUENT VENTRICULAR PREMATURE COMPLEXES Electronically Signed On 06-12-2017 17:05:03 EDT by Alan Waters
--- NOTE | 2017-06-12 17:08 | Electrocardiograph Report ---
[place] [id number] Test Date: 2017-06-10 Pat Name: Carlos Blanco Department: 102 Room: [facility] Gender: M [employer]atto[employer] Manager: Candido : 1950 Requested By: Kash Carr Order Number: [id number] Reading MD: Alan Waters Measurements Intervals [place] Rate: 97 P: 60 DC: 211 QRS: 7 QRSD: 105 T: 62 QT: 347 QTc: 402 Interpretive Statements SINUS RHYTHM WITH FIRST DEGREE AV BLOCK WITH OCCASIONAL VENTRICULAR PREMATURE COMPLEXES Electronically Signed On 06-12-2017 17:06:40 EDT by Alan Waters
[2017-06-13] MEDS: 0.9 % Sodium Chloride 1,000 ML IVC SCH (01:14)
[2017-06-13 05:34] LABS: BUN/Creatinine Ratio 11 (6-26); Blood Urea Nitrogen 10 mg/dL (8-23); Calcium 8.1 mg/dL (8.6-10.3); Carbon Dioxide 25 mEq/L (23-29); Chloride 103 mEq/L (98-107); Glucose 111 mg/dL (70-105); Osmolality,Calculated 272 (280-300); Potassium 4.3 mEq/L (3.5-5.1); Sodium 131 mEq/L (136-145); eGFR For African Americans > 60 (> 60); eGFR For Non-African Americans > 60 (> 60)
[2017-06-13] MEDS: *HR* Heparin 5,000 UNIT/ML VIAL SQ SCH (06:46)
[2017-06-13] MEDS: Doxycycline 100 MG CAPSULE PO SCH (08:07)
[2017-06-13] MEDS: *HR* Methadone 10 MG TABLET PO SCH (08:07)
[2017-06-13] MEDS: Aspirin Enteric Coated 325 MG Tablet PO SCH (08:07)
[2017-06-13] MEDS: Loratadine 10 MG TABLET PO SCH (08:07)
[2017-06-13] MEDS: Insulin LISPRO 300 UNITS/3 ML VIAL SQ SCH ×2 (08:10→12:14)
[2017-06-13 11:12] VITALS: BP 108/83
--- NOTE | 2017-06-13 12:24 | Discharge Summary ---
- NOTES TO OUTPATIENT PROVIDER Notes to Outpatient Provider: Patient to follow-up with primary care provider regarding hyponatremia and monitoring of urinary retention Date of Encounter: 06/13/17 Time of Encounter: 15:00 - Discharge Diagnosis (1) Hyponatremia Priority: Primary Status: Acute (2) Urinary retention Priority: Primary Status: Acute (3) Influenza Priority: Primary Status: Resolved (4) Tongue cancer Priority: Secondary Status: Chronic (5) Type 2 diabetes mellitus Priority: Secondary Status: Chronic Qualifiers: Diabetes mellitus bed bug exterminator insulin use: unspecified bed bug exterminator insulin use status Diabetes mellitus complication status: with neurologic complications Diabetes mellitus complication detail: with unspecified neuropathy Qualified Code(s): E11.40 - Type 2 diabetes mellitus with diabetic neuropathy, unspecified Hospital course: Patient is a 66-year-old male with past medical history significant for tongue cancer, coronary artery disease, hyperlipidemia, peripheral arterial disease, hypothyroid and mood disorder who presented to the ER on due to complaints of fatigue, weakness, headaches, difficulty urinating, and reported low sodium. In the ER, patient was found to have a critical hyponatremia with a sodium of 117. He was diagnosed with influenza several days ago and is completing his last dose of Tamiflu the night of admission. He was also on antibiotics for possible secondary pneumonia. However, it appears he has not developed pneumonia thus far. Because of his hyponatremia and generalized complaints, he was admitted to hospital service for further workup and care. During patients hospital stay his hyponatremia gradually improved. In addition patients urinary retention resolved. Patient will be discharged to follow-up with primary care provider. - Time Spent with Patient Total time spent providing and/or coordinating discharge services: Less than 30 minutes - Discharge Medications Home Medications: Docusate Sodium [Dok] 100 mg PO DAILY 01/01/17 [History] Insulin Glargine,Hum.rec.anlog [Lantus Solostar] 12 unit SQ HS 01/01/17 [History ] Levothyroxine [Synthroid] 100 mcg PO 0630 01/01/17 [History] Oxycodone HCl/Acetaminophen [Percocet 5-325 mg Tablet] 1 tab PO TID PRN [History] Albuterol Sulfate [Albuterol Inhaler] 2 puff IH Q4H PRN 06/10/17 [History] Aspirin Enteric Coated [Aspirin EC] 325 mg PO DAILY 06/10/17 [History] Cetirizine HCl [Zyrtec] 10 mg PO DAILY 06/10/17 [History] [place] Tar [Tarsum Professional] 1 appl TP AD 06/10/17 [History] Doxycycline Monohydrate [Avidoxy] 100 mg PO BID 06/10/17 [History] GuaiFENesin/Dextromethorphan [Tussin Dm Syrup] 10 ml PO Q4H PRN 06/10/17 [ History] Ibuprofen [Motrin] 600 mg PO Q8H 06/10/17 [History] Lisinopril [Zestril] 5 mg PO DAILY 06/10/17 [History] Metformin HCl [Metformin HCl ER] 1,000 mg PO BID 06/10/17 [History] Methadone 40 mg PO QID 06/10/17 [History] Omeprazole [PriLOSEC] 40 mg PO DAILY 06/10/17 [History] Polyvinyl Alcohol [Artificial Tears] 1 drop BOTH EYES QID 06/10/17 [History] Silver Sulfadiazine [Silvadene] 1 appl TP BID PRN 06/10/17 [History] Allergies/Adverse Reactions: 3 Allergy/AdvReac Type Severity Reaction Status Date / Time fentanyl Allergy Rash Verified 01/10/17 07:40 gabapentin Allergy See Verified 06/10/17 22:54 Comments Imipramine Allergy Rash Verified 06/10/17 19:56 morphine Allergy Hives Verified 01/10/17 07:40 Penicillins Allergy Rash Verified 01/10/17 07:40 tofanil Allergy Severe Muscle Pain Uncoded 01/01/17 09:07 Date of admission: 06/11/17 02:15 [facility] care physician[facility] - Constitutional Vitals: Temp Pulse Resp BP Pulse Ox 97.6 F 77 16 108/83 96 06/13/17 11:08 06/13/17 11:08 06/13/17 11:08 06/13/17 11:08 06/13/17 11:08 General appearance: Present: cooperative, A&O X 3, pleasant, no acute distress, answers questions appropriately - Respiratory Respiratory exam: Present: CTAB. Absent: accessory muscle use, rales, rhonchi, wheezes - Cardiovascular Cardiovascular exam: Present: RRR, +S1, +S2. Absent: diastolic murmur, gallop, rubs, systolic murmur - Patient Status Disposition: Home, Self-Care Condition: Good - Discharge Instructions Instructions: Urinary Retention in Men (GEN), Hyponatremia (DC) Follow Up With: JANELLPCP [Primary Care Provider] - 06/20/17 10:45 am
== END 2017-06-13 13:32 | disposition home or self-care (01) | DRG 641 ==
LOC: ICNU 19:48 → EMEROO 19:48 → ICNU 06-11 00:45 → SUATTDRO 06-11 02:15 → 2NENU 06-12 16:01
PROVIDERS: ADMIT Pediatrics; ATTEND Hospitalist

== ENCOUNTER 2019-03-30 02:44 | Observation (INO) ==
[2019-03-30] MEDS ORDERED: Ipratropium/Albuterol Neb 3 ML IH ONE (03:35)
[2019-03-30] MEDS ORDERED: Ondansetron 4 MG/2 ML VIAL IVP ONE (03:35)
[2019-03-30] MEDS ORDERED: 0.9 % Sodium Chloride 500 ML IV ONE (03:37)
[2019-03-30 04:08] LABS: Basophils % 0.4 %; Eosinophils # 0.1 K/mcL (0.0-0.6); Eosinophils % 0.9 %; Hematocrit 35.4 % (37.5-50.1); Hemoglobin 12.6 g/dL (12.9-16.9); Immature Granulocytes % 0.9 % (0-4); Lymphocytes # 0.5 K/mcL (0.6-4.6); Lymphocytes % 6.4 %; Mean Corpuscular HGB Conc 35.6 g/dL (31.6-35.5); Mean Corpuscular Hemoglobin 31.6 pg (28.0-33.3); Mean Corpuscular Volume 88.7 fL (83.0-100.0); Mean Platelet Volume 8.8 fL (9.4-12.4); Monocytes # 0.7 K/mcL (0.0-1.3); Monocytes % 9.4 %; Neutrophils # 5.8 K/mcL (1.6-8.9); Platelet Count 185 K/mcL (140-400); Red Blood Count 3.99 M/mcL (4.19-5.50); Red Cell Distribution Width 12.8 % (11.5-14.5)
[2019-03-30 04:10] LABS: VBG HCO3 26 mEq/L (21-27); VBG PCO2 54 mmHg (41-51); VBG PO2 46 mmHg (25-50)
[2019-03-30 04:31] LABS: Alanine Aminotransferase 14 Units/L (7-52); Albumin/Globulin Ratio 1.5 (1.1-2.2); Alkaline Phosphatase 49 Units/L (34-104); Aspartate Amino Transferase 29 Units/L (13-39); BUN/Creatinine Ratio 11 (6-26); Bilirubin,Direct 0.1 mg/dL (0.0-0.2); Bilirubin,Indirect 0.2 mg/dL (0.0-1.0); Bilirubin,Total 0.3 mg/dL (0.3-1.0); Blood Urea Nitrogen 10 mg/dL (8-23); Carbon Dioxide 24 mEq/L (23-29); Chloride 93 mEq/L (98-107); Globulin 2.6 g/dL (2.4-3.5); Glucose 155 mg/dL (70-105); Lipase < 3 Units/L (11-82); Magnesium 1.5 mg/dL (1.6-2.6); Osmolality,Calculated 268 (280-300); Potassium 3.8 mEq/L (3.5-5.1); Sodium 128 mEq/L (136-145); Total Protein 6.6 g/dL (6.4-8.9); Troponin I < 0.03 ng/mL (< 0.04); eGFR For African Americans > 60 (> 60); eGFR For Non-African Americans > 60 (> 60)
[2019-03-30] MEDS ORDERED: methylPREDNISolone 125 MG/2 ML VIAL IVP ONE (04:36)
[2019-03-30] MEDS ORDERED: cefTRIAXone 1,000 MG in Water for inj. (sterile) 10 ML IVP ONE (04:40)
[2019-03-30] MEDS ORDERED: Azithromycin 500 MG in D5% in Water 250 ML IVPB ONE (04:40)
[2019-03-30] MEDS ORDERED: Ondansetron 4 MG/2 ML VIAL IVP PRN (05:58)
[2019-03-30] MEDS ORDERED: Acetaminophen 325 MG TABLET PO PRN (05:58)
[2019-03-30] MEDS ORDERED: Naloxone 0.4 MG/ML INJ IVP PRN (05:58)
[2019-03-30] MEDS ORDERED: Dextrose Gel 15 GM/37.5 ML TUBE PO PRN ×2 (06:01)
[2019-03-30] MEDS ORDERED: *HR* Dextrose 50 % in Water (Syg) 50 ML SYRINGE IVP PRN (06:01)
[2019-03-30] MEDS ORDERED: D5% in Water 1,000 ML IVC PRN (06:01)
[2019-03-30] MEDS ORDERED: Ipratropium/Albuterol Neb 3 ML IH PRN (06:03)
[2019-03-30 06:36] LABS: Thyroid Stimulating Hormone 2.665 mcIU/mL (0.340-5.600)
[2019-03-30] MEDS: Insulin LISPRO 300 UNITS/3 ML VIAL SQ SCH ×3 (08:50→16:00)
[2019-03-30] MEDS: Insulin DETEMIR 100 UNIT/ML X5UNITS SQ SCH (08:50)
[2019-03-30 09:21] LABS: Adenovirus Not Detected (Not Detect); Bordetella Pertussis Not Detected (Not Detect); Chlamydophila pneumoniae Not Detected (Not Detect); Coronavirus 229E Not Detected (Not Detect); Coronavirus HKU1 Not Detected (Not Detect); Coronavirus NL63 Not Detected (Not Detect); Coronavirus OC43 Not Detected (Not Detect); Human Metapneumovirus DETECTED (Not Detect); Human Rhinovirus/Enterovirus Not Detected (Not Detect); Influenza A Subtype 2009 H1 Not Detected (Not Detect); Influenza B Not Detected (Not Detect); Mycoplasma pneumoniae Not Detected (Not Detect); Parainfluenza Virus 1 Not Detected (Not Detect); Parainfluenza Virus 2 Not Detected (Not Detect); Parainfluenza Virus 3 Not Detected (Not Detect); Parainfluenza Virus 4 Not Detected (Not Detect); Respiratory Syncytial Virus Not Detected (Not Detect)
[2019-03-30] MEDS: *HR* Heparin 5,000 UNIT/ML VIAL SQ SCH ×2 (15:04→21:13)
[2019-03-30] MEDS ORDERED: 0.9 % Sodium Chloride 1,000 ML IVC ONE (16:06)
[2019-03-30] MEDS ORDERED: *HR* OxyCODONE/APAP 5/325 TABLET PO PRN (17:06)
[2019-03-30] MEDS ORDERED: MethylPREDNISolone 40 MG/ML VIAL IVP SCH (18:00)
[2019-03-30] MEDS: *HR* Methadone 10 MG TABLET PO SCH (21:12)
[2019-03-31] MEDS: *HR* Heparin 5,000 UNIT/ML VIAL SQ SCH ×2 (05:35→15:37)
[2019-03-31 06:12] LABS: Basophils % 0.3 %; Eosinophils # 0.1 K/mcL (0.0-0.6); Eosinophils % 1.2 %; Immature Granulocytes % 0.5 % (0-4); Lymphocytes # 0.8 K/mcL (0.6-4.6); Mean Corpuscular HGB Conc 33.3 g/dL (31.6-35.5); Mean Corpuscular Hemoglobin 31.3 pg (28.0-33.3); Mean Corpuscular Volume 93.8 fL (83.0-100.0); Mean Platelet Volume 8.9 fL (9.4-12.4); Monocytes # 0.6 K/mcL (0.0-1.3); Monocytes % 7.5 %; Platelet Count 182 K/mcL (140-400); Red Blood Count 3.52 M/mcL (4.19-5.50); Red Cell Distribution Width 13.3 % (11.5-14.5); Segmented Neutrophils % 80.5 %; White Blood Count 7.5 K/mcL (4.3-11.1)
[2019-03-31 06:31] LABS: BUN/Creatinine Ratio 11 (6-26); Blood Urea Nitrogen 10 mg/dL (8-23); Calcium 8.5 mg/dL (8.6-10.3); Carbon Dioxide 25 mEq/L (23-29); Chloride 100 mEq/L (98-107); Glucose 68 mg/dL (70-105); Osmolality,Calculated 273 (280-300); Potassium 3.9 mEq/L (3.5-5.1); Sodium 133 mEq/L (136-145); eGFR For African Americans > 60 (> 60); eGFR For Non-African Americans > 60 (> 60)
[2019-03-31] MEDS ORDERED: predniSONE 20 MG TABLET PO SCH (09:00)
[2019-03-31] MEDS: Insulin LISPRO 300 UNITS/3 ML VIAL SQ SCH ×2 (11:07)
[2019-03-31] MEDS: Insulin DETEMIR 100 UNIT/ML X5UNITS SQ SCH (11:08)
[2019-03-31] MEDS: *HR* Methadone 10 MG TABLET PO SCH ×2 (11:09→15:36)
[2019-03-31] MEDS ORDERED: Insulin LISPRO 300 UNITS/3 ML VIAL SQ SCH (12:00)
[2019-03-31 14:17] VITALS: BP 123/70
[2019-04-01] MEDS ORDERED: Insulin DETEMIR 100 UNIT/ML X5UNITS SQ SCH (09:00)
== END 2019-03-31 16:31 | disposition home or self-care (01) ==
LOC: CDU 02:44 → EMEROOARM 02:44 → SUATTDRO 07:26 → CDU 07:30 → 3ANU 18:04
PROVIDERS: ADMIT Family Medicine; ATTEND Student in an Organized Health Care Education/Training Program

== ENCOUNTER 2020-11-13 18:16 | Inpatient (IN) ==
[2020-11-13] MEDS ORDERED: GI Cocktail 40 ML EACH PO ONE (19:28)
[2020-11-13] MEDS: Nitroglycerin 0.4 MG TAB.SUBL SL PRN ×2 (19:37→19:45)
[2020-11-13 19:50] LABS: Basophils % 0.6 %; Eosinophils % 0.2 %; Hematocrit 36.3 % (37.5-50.1); Hemoglobin 11.9 g/dL (12.9-16.9); Immature Granulocytes % 0.3 % (0-4); Lymphocytes # 0.6 K/mcL (0.6-4.6); Lymphocytes % 8.6 %; Mean Corpuscular HGB Conc 32.8 g/dL (31.6-35.5); Mean Corpuscular Hemoglobin 28.5 pg (28.0-33.3); Mean Corpuscular Volume 87.1 fL (83.0-100.0); Mean Platelet Volume 9.1 fL (9.4-12.4); Monocytes # 0.5 K/mcL (0.0-1.3); Monocytes % 7.1 %; Neutrophils # 5.4 K/mcL (1.6-8.9); Platelet Count 206 K/mcL (140-400); Red Blood Count 4.17 M/mcL (4.19-5.50); Red Cell Distribution Width 13.2 % (11.5-14.5); Segmented Neutrophils % 83.2 %; White Blood Count 6.5 K/mcL (4.3-11.1)
[2020-11-13] MEDS ORDERED: Ondansetron 4 MG/2 ML VIAL IVP PRN (20:06)
[2020-11-13] MEDS ORDERED: Naloxone 0.4 MG/ML INJ IVP PRN (20:06)
[2020-11-13 20:09] LABS: BUN/Creatinine Ratio 9 (6-26); Blood Urea Nitrogen 9 mg/dL (8-23); Calcium 9.4 mg/dL (8.6-10.3); Carbon Dioxide 28 mEq/L (23-29); Chloride 98 mEq/L (98-107); Glucose 205 mg/dL (70-105); Osmolality,Calculated 281 (280-300); Potassium 4.2 mEq/L (3.5-5.1); Sodium 133 mEq/L (136-145); Troponin I < 0.03 ng/mL (< 0.04); eGFR For African Americans > 60 (> 60); eGFR For Non-African Americans > 60 (> 60)
[2020-11-13] MEDS ORDERED: Dextrose Gel 15 GM/37.5 ML TUBE PO PRN ×2 (20:09)
[2020-11-13] MEDS ORDERED: D5% in Water 1,000 ML IVC PRN (20:09)
[2020-11-13] MEDS ORDERED: *HR* Dextrose 50 % in Water (Vial) 50 ML VIAL IVP PRN (20:09)
[2020-11-13] MEDS ORDERED: Pantoprazole 40 MG VIAL IVP ONE (23:07)
[2020-11-14] MEDS ORDERED: Morphine Sulfate 2 MG/ML SYRINGE IVP ONE (00:15)
[2020-11-14 06:27] LABS: Hematocrit 33.3 % (37.5-50.1); Hemoglobin 10.9 g/dL (12.9-16.9); Mean Corpuscular HGB Conc 32.7 g/dL (31.6-35.5); Mean Corpuscular Hemoglobin 28.5 pg (28.0-33.3); Mean Corpuscular Volume 86.9 fL (83.0-100.0); Mean Platelet Volume 9.2 fL (9.4-12.4); Platelet Count 198 K/mcL (140-400); Red Blood Count 3.83 M/mcL (4.19-5.50); Red Cell Distribution Width 13.5 % (11.5-14.5); White Blood Count 5.9 K/mcL (4.3-11.1)
[2020-11-14 06:33] LABS: INR 1.2; Prothrombin Time 13.8 Seconds (9.4-12.1)
[2020-11-14 06:34] LABS: Activated Partial Thrombo Time 35.8 Seconds (26.0-36.0)
[2020-11-14 06:59] LABS: BUN/Creatinine Ratio 10 (6-26); Blood Urea Nitrogen 10 mg/dL (8-23); Calcium 8.8 mg/dL (8.6-10.3); Carbon Dioxide 24 mEq/L (23-29); Chloride 99 mEq/L (98-107); Chol/HDL Ratio 3.6 (0-4.9); Glucose 144 mg/dL (70-105); Osmolality,Calculated 280 (280-300); Potassium 3.7 mEq/L (3.5-5.1); Sodium 134 mEq/L (136-145); eGFR For African Americans > 60 (> 60); eGFR For Non-African Americans > 60 (> 60)
[2020-11-14] MEDS: Insulin LISPRO 300 UNITS/3 ML VIAL SUBQ SCH ×3 (09:06→16:05)
[2020-11-14] MEDS: Aspirin Enteric Coated 81 MG Tablet PO SCH (09:17)
[2020-11-14] MEDS ORDERED: Acetaminophen 325 MG TABLET PO ONE (11:49)
[2020-11-14] MEDS ORDERED: *HR* Midazolam HCl 2 MG/2 ML VIAL ONE (13:48)
[2020-11-14] MEDS ORDERED: Heparin 1,000 UNITS/500 mL 500 ML ONE (13:49)
[2020-11-14] MEDS ORDERED: Nitroglycerin 1,000 MCG/5 ML VIAL IV ONE (13:49)
[2020-11-14] MEDS ORDERED: 0.9 % Sodium Chloride 2,000 ML ONE (13:49)
[2020-11-14] MEDS ORDERED: ISOVUE-370 200 ML INFUS..BTL ONE ×2 (13:49→14:57)
[2020-11-14] MEDS ORDERED: *HR* Heparin 10,000 UNIT/10 ML VIAL ONE (13:49)
[2020-11-14] MEDS ORDERED: *HR* Ticagrelor 90 MG TABLET ONE (15:11)
[2020-11-14] MEDS ORDERED: *HR* Bivalirudin 250 MG VIAL IVC ONE ×2 (15:32)
[2020-11-14] MEDS ORDERED: *HR* Methadone 10 MG TABLET PO SCH (16:31)
[2020-11-14] MEDS ORDERED: Nitroglycerin 0.4 MG TAB.SUBL SL PRN (16:35)
[2020-11-14] MEDS ORDERED: Fluticasone Propionate Nasal 50 MCG/SPRAY BOTTLE NS PRN (16:35)
[2020-11-14] MEDS ORDERED: polyethylene glycoL 3350 17 GM POWD.PACK PO SCH (21:00)
[2020-11-14] MEDS ORDERED: *HR* Ticagrelor 90 MG TABLET PO SCH (21:00)
[2020-11-14] MEDS: *HR* Methadone 10 MG TABLET PO SCH ×2 (23:35→23:38)
[2020-11-15] MEDS: *HR* Methadone 10 MG TABLET PO SCH ×3 (00:35→10:07)
[2020-11-15 03:02] VITALS: TEMP 97.9
[2020-11-15 06:41] VITALS: BP 101/60; PULSE 71
[2020-11-15] MEDS ORDERED: *HR* Ticagrelor 90 MG TABLET PO SCH (09:00)
[2020-11-15 10:02] LABS: BUN/Creatinine Ratio 12 (6-26); Blood Urea Nitrogen 15 mg/dL (8-23); Calcium 9.1 mg/dL (8.6-10.3); Carbon Dioxide 25 mEq/L (23-29); Chloride 102 mEq/L (98-107); Glucose 173 mg/dL (70-105); Magnesium 1.9 mg/dL (1.6-2.6); Osmolality,Calculated 285 (280-300); Potassium 3.9 mEq/L (3.5-5.1); Sodium 135 mEq/L (136-145); eGFR For African Americans > 60 (> 60); eGFR For Non-African Americans 58 (> 60)
[2020-11-15] MEDS: Aspirin Enteric Coated 81 MG Tablet PO SCH (10:07)
[2020-11-15] MEDS: Insulin LISPRO 300 UNITS/3 ML VIAL SUBQ SCH ×2 (10:42→12:36)
[2020-11-15 12:30] VITALS: O2SAT 94
== END 2020-11-15 13:10 | disposition home or self-care (01) | DRG 247 ==
LOC: CDU 18:16 → EMEROOARM 18:16 → SUATTDRO 20:29 → CDU 20:55 → 3BNU 11-14 22:52
PROVIDERS: ADMIT Internal Medicine; ATTEND Internal Medicine

== ENCOUNTER 2020-12-27 03:01 | Observation (INO) ==
[2020-12-27] MEDS ORDERED: Isovue-370 500 ML BOTTLE IVP ONE (03:15)
[2020-12-27] MEDS ORDERED: Nitroglycerin 0.4 MG TAB.SUBL SL PRN (03:15)
[2020-12-27 03:30] LABS: Basophils % 0.6 %; Eosinophils # 0.2 K/mcL (0.0-0.6); Eosinophils % 3.4 %; Hematocrit 31.3 % (37.5-50.1); Hemoglobin 10.8 g/dL (12.9-16.9); Immature Granulocytes % 0.3 % (0-4); Lymphocytes % 14.7 %; Mean Corpuscular HGB Conc 34.5 g/dL (31.6-35.5); Mean Corpuscular Hemoglobin 29.3 pg (28.0-33.3); Mean Corpuscular Volume 84.8 fL (83.0-100.0); Mean Platelet Volume 9.1 fL (9.4-12.4); Monocytes # 0.7 K/mcL (0.0-1.3); Monocytes % 11.3 %; Neutrophils # 4.6 K/mcL (1.6-8.9); Platelet Count 166 K/mcL (140-400); Red Blood Count 3.69 M/mcL (4.19-5.50); Segmented Neutrophils % 69.7 %; White Blood Count 6.6 K/mcL (4.3-11.1)
[2020-12-27 03:39] LABS: Prothrombin Time 11.5 Seconds (9.4-12.1)
[2020-12-27 04:15] LABS: Alanine Aminotransferase 8 Units/L (7-52); Albumin 3.9 g/dL (3.5-5.7); Albumin/Globulin Ratio 1.3 (1.1-2.2); Alkaline Phosphatase 62 Units/L (34-104); Aspartate Amino Transferase 16 Units/L (13-39); BUN/Creatinine Ratio 7 (6-26); Bilirubin,Direct 0.2 mg/dL (0.0-0.2); Bilirubin,Indirect 0.3 mg/dL (0.0-1.0); Bilirubin,Total 0.5 mg/dL (0.3-1.0); Blood Urea Nitrogen 8 mg/dL (8-23); Calcium 8.8 mg/dL (8.6-10.3); Carbon Dioxide 26 mEq/L (23-29); Chloride 92 mEq/L (98-107); Globulin 3.1 g/dL (2.4-3.5); Glucose 131 mg/dL (70-105); Lipase 3 Units/L (11-82); Osmolality,Calculated 262 (280-300); Potassium 3.9 mEq/L (3.5-5.1); Sodium 126 mEq/L (136-145); Troponin I < 0.03 ng/mL (< 0.04); eGFR For African Americans > 60 (> 60); eGFR For Non-African Americans > 60 (> 60)
[2020-12-27] MEDS ORDERED: Acetaminophen 325 MG TABLET PO PRN (05:25)
[2020-12-27] MEDS ORDERED: Ondansetron 4 MG/2 ML VIAL IVP PRN (05:25)
[2020-12-27] MEDS ORDERED: Naloxone 0.4 MG/ML INJ IVP PRN (05:25)
[2020-12-27] MEDS ORDERED: Melatonin 3 MG TABLET PO PRN (05:25)
[2020-12-27] MEDS: Aspirin Enteric Coated 81 MG Tablet PO SCH (08:49)
[2020-12-27] MEDS: Isosorbide MONOnitrate (24 HR) 60 MG TAB.ER.24H PO SCH (08:59)
[2020-12-27] MEDS ORDERED: Perflutren Lipid Microsphere 1.3 ML in 0.9 % Sodium Chloride 8.7 ML IVP PRN (11:13)
[2020-12-27] MEDS: polyethylene glycoL 3350 17 GM POWD.PACK PO SCH (21:51)
[2020-12-28 02:15] LABS: Basophils % 0.7 %; Eosinophils # 0.2 K/mcL (0.0-0.6); Eosinophils % 3.9 %; Hematocrit 28.2 % (37.5-50.1); Hemoglobin 9.7 g/dL (12.9-16.9); Immature Granulocytes % 0.4 % (0-4); Lymphocytes # 0.9 K/mcL (0.6-4.6); Mean Corpuscular HGB Conc 34.4 g/dL (31.6-35.5); Mean Corpuscular Hemoglobin 29.7 pg (28.0-33.3); Mean Corpuscular Volume 86.2 fL (83.0-100.0); Mean Platelet Volume 9.5 fL (9.4-12.4); Monocytes # 0.7 K/mcL (0.0-1.3); Monocytes % 11.5 %; Neutrophils # 3.9 K/mcL (1.6-8.9); Platelet Count 168 K/mcL (140-400); Red Blood Count 3.27 M/mcL (4.19-5.50); Red Cell Distribution Width 14.5 % (11.5-14.5); Segmented Neutrophils % 68.5 %; White Blood Count 5.7 K/mcL (4.3-11.1)
[2020-12-28 02:29] LABS: INR 1.1; Prothrombin Time 12.3 Seconds (9.4-12.1)
[2020-12-28 02:31] LABS: BUN/Creatinine Ratio 9 (6-26); Blood Urea Nitrogen 9 mg/dL (8-23); Calcium 8.4 mg/dL (8.6-10.3); Carbon Dioxide 26 mEq/L (23-29); Chloride 97 mEq/L (98-107); Glucose 153 mg/dL (70-105); Magnesium 1.9 mg/dL (1.6-2.6); Osmolality,Calculated 268 (280-300); Potassium 4.1 mEq/L (3.5-5.1); Sodium 128 mEq/L (136-145); eGFR For African Americans > 60 (> 60); eGFR For Non-African Americans > 60 (> 60)
[2020-12-28] MEDS: Aspirin Enteric Coated 81 MG Tablet PO SCH (08:18)
[2020-12-28] MEDS: Isosorbide MONOnitrate (24 HR) 60 MG TAB.ER.24H PO SCH (08:18)
[2020-12-28] MEDS ORDERED: Fluticasone Propionate Nasal 50 MCG/SPRAY BOTTLE NS PRN (10:16)
[2020-12-28] MEDS ORDERED: *HR* OxyCODONE/APAP 5/325 TABLET PO PRN (10:16)
[2020-12-28] MEDS ORDERED: Loratadine 10 MG TABLET PO PRN (10:16)
[2020-12-28] MEDS ORDERED: *HR* Methadone 10 MG TABLET PO SCH (10:16)
[2020-12-28] MEDS ORDERED: D5% in Water 1,000 ML IVC PRN (13:51)
[2020-12-28] MEDS ORDERED: Dextrose Gel 15 GM/37.5 ML TUBE PO PRN ×2 (13:51)
[2020-12-28] MEDS ORDERED: *HR* Dextrose 50 % in Water (Syg) 50 ML SYRINGE IVP PRN (13:51)
[2020-12-28] MEDS ORDERED: Insulin LISPRO 300 UNITS/3 ML VIAL SUBQ SCH ×2 (16:30→21:00)
[2020-12-28] MEDS: *HR* Methadone 10 MG TABLET PO SCH ×2 (16:35→22:57)
[2020-12-28] MEDS: polyethylene glycoL 3350 17 GM POWD.PACK PO SCH (20:31)
[2020-12-29 01:33] LABS: Basophils # 0.1 K/mcL (0.0-0.2); Eosinophils # 0.2 K/mcL (0.0-0.6); Eosinophils % 4.7 %; Hematocrit 28.8 % (37.5-50.1); Hemoglobin 9.7 g/dL (12.9-16.9); Immature Granulocytes % 0.2 % (0-4); Lymphocytes # 0.8 K/mcL (0.6-4.6); Mean Corpuscular HGB Conc 33.7 g/dL (31.6-35.5); Mean Corpuscular Hemoglobin 29.7 pg (28.0-33.3); Mean Corpuscular Volume 88.1 fL (83.0-100.0); Mean Platelet Volume 9.4 fL (9.4-12.4); Monocytes # 0.6 K/mcL (0.0-1.3); Neutrophils # 3.4 K/mcL (1.6-8.9); Platelet Count 168 K/mcL (140-400); Red Blood Count 3.27 M/mcL (4.19-5.50); Red Cell Distribution Width 14.6 % (11.5-14.5); Segmented Neutrophils % 66.1 %; White Blood Count 5.1 K/mcL (4.3-11.1)
[2020-12-29 01:47] LABS: BUN/Creatinine Ratio 13 (6-26); Blood Urea Nitrogen 14 mg/dL (8-23); Calcium 8.4 mg/dL (8.6-10.3); Carbon Dioxide 25 mEq/L (23-29); Chloride 98 mEq/L (98-107); Glucose 192 mg/dL (70-105); Osmolality,Calculated 274 (280-300); Potassium 4.3 mEq/L (3.5-5.1); Sodium 129 mEq/L (136-145); eGFR For African Americans > 60 (> 60); eGFR For Non-African Americans > 60 (> 60)
[2020-12-29] MEDS: *HR* Methadone 10 MG TABLET PO SCH (05:17)
[2020-12-29] MEDS: Aspirin Enteric Coated 81 MG Tablet PO SCH (09:13)
[2020-12-29] MEDS: Isosorbide MONOnitrate (24 HR) 60 MG TAB.ER.24H PO SCH (09:13)
[2020-12-29 11:16] VITALS: BP 115/62; PULSE 59; TEMP 98.2; O2SAT 97
== END 2020-12-29 12:38 | disposition home or self-care (01) ==
LOC: EMEROOARM 03:01 → 2ANU 03:01 → SUATTDRO 05:22 → 2ANU 06:19
PROVIDERS: ADMIT Internal Medicine; ATTEND Internal Medicine